=== PATIENT | male | born 1990 | race Caucasian/White ===

== ENCOUNTER → 2018-09-11 | Outpatient (CLI) | payer OTHER ==
[2018-09-11 11:23] LABS: BASO # 0.1 10^3/uL (0.0-0.2); BASO % 0.8 % (0.0-1.0); EOS # 0.3 10^3/uL (0.0-0.50); EOS % 3.4 % (0.0-3.0); HEMATOCRIT 42.4 % (42.0-52.0); HEMOGLOBIN 14.7 g/dl (13.5-17.5); LYMPH # 1.8 10^3/uL (1.5-6.5); LYMPH % 24.6 % (24.0-44.0); MEAN CORPUSCULAR HEMOGLOBIN 31.6 pg (27.0-33.0); MEAN CORPUSCULAR HGB CONC 34.7 g/dl (32.0-36.5); MEAN CORPUSCULAR VOLUME 91.2 fl (80.0-96.0); MONO # 0.5 10^3/uL (0.0-0.8); MONO % 6.8 % (0.0-5.0); NEUTROPHILS # 4.7 10^3/uL (1.8-7.7); NEUTROPHILS % 64.1 % (36.0-66.0); PLATELET COUNT, AUTOMATED 251 10^3/uL (150-450); RED BLOOD COUNT 4.65 10^6/uL (4.30-6.10); WHITE BLOOD COUNT 7.4 10^3/uL (4.0-10.0)
[2018-09-11 11:47] LABS: PERCENT SATURATION 46.4 % (19.7-50.0)
[2018-09-11 12:01] LABS: FOLATE 16.4 NG/ML
[2018-09-12 16:39] LABS: TISSUE TRANSGLUTAMINASE IgA <2 U/mL (0-3); UNITSIGA FOR GLIADIN IGA 5 units (0-19); UNITSIGG FOR GLIADIN IGG 5 units (0-19)
== END ==
LOC: M LAB 10:51
PROVIDERS: ATTEND Internal Medicine Gastroenterology
DX: R19.7 Diarrhea, unspecified (principal)

== ENCOUNTER → 2018-09-13 | Outpatient (CLI) | payer OTHER | LOC: M LAB 08:45 | PROVIDERS: ATTEND Internal Medicine Gastroenterology | DX: R19.7 Diarrhea, unspecified (principal) ==

== ENCOUNTER 2018-09-18 09:54 | Day surgery (SDC) | payer OTHER ==
[~2018-09-18] VITALS: Ht 180.3 cm; Wt 70.3 kg
[~2018-09-18 09:54] MED LIST: NS 1,000 ML IV ONE; PROPOFOL 500 MG/50 ML VIAL As Ordered ONE
[2018-09-18] MEDS ORDERED: LIDOCAINE 2% INJ 100 MG/5 ML SDV (FOR ANES.) As Ordered ONE (10:17)
--- NOTE | 2018-09-18 11:28 | ROOR ---
Patient Name: Sudarshan Nielsen Procedure Date: 09/18/2018 10:35 AM Date of : 1990 Age: 27 Room: [facility] Gender: Male Note Status: Finalized Procedure: Upper GI endoscopy Indications: Persistent vomiting Providers: Maury Nemwan MD Referring MD: JASMYN GAR MD Requesting Provider: Medicines: Monitored Anesthesia Care Complications: No immediate complications. Procedure: Pre-Anesthesia Assessment: - Prior to the procedure, a History and Physical was performed, and patient medications and allergies were reviewed. The patient is competent. The risks and benefits of the procedure and the sedation options and risks were discussed with the patient. All questions were answered and informed consent was obtained. Patient identification and proposed procedure were verified by the physician, the nurse and the anesthesiologist in the procedure room. Mental Status Examination: alert and oriented. Airway Examination: normal oropharyngeal airway and neck mobility. Respiratory Examination: clear to auscultation. CV Examination: normal. Prophylactic Antibiotics: The patient does not require prophylactic antibiotics. Prior Anticoagulants: The patient has taken no previous anticoagulant or antiplatelet agents. ASA Grade Assessment: II - A patient with mild systemic disease. After reviewing the risks and benefits, the patient was deemed in satisfactory condition to undergo the procedure. The anesthesia plan was to use monitored anesthesia care (MAC). Immediately prior to administration of medications, the patient was re-assessed for adequacy to receive sedatives. The heart rate, respiratory rate, oxygen saturations, blood pressure, adequacy of pulmonary ventilation, and response to care were monitored throughout the procedure. The physical status of the patient was re-assessed after the procedure. The Endoscope was introduced through the mouth, and advanced to the second part of duodenum. The upper GI endoscopy was accomplished without difficulty. The patient tolerated the procedure well. Findings: LA Grade A (one or more mucosal breaks less than 5 mm, not extending between tops of 2 mucosal folds) esophagitis with no bleeding was found in the distal esophagus. Biopsies were taken with a cold forceps for histology. Verification of patient identification for the specimen was done by the physician and nurse using the patient's name, date and medical record number. Estimated blood loss was minimal. Patchy moderate inflammation characterized by erythema and granularity was found in the gastric body and in the gastric antrum. Biopsies were taken with a cold forceps for Helicobacter pylori testing. The duodenal bulb and second portion of the duodenum were normal. Biopsies for histology were taken with a cold forceps for evaluation of celiac disease. Impression: - LA Grade A reflux esophagitis. Rule out Galaviz's esophagus. Biopsied. - Gastritis. Biopsied. - Normal duodenal bulb and second portion of the duodenum. Biopsied. Recommendation: - Patient has a contact number available for emergencies. The signs and symptoms of potential delayed complications were discussed with the patient. Return to normal activities tomorrow. Written discharge instructions were provided to the patient. - Resume previous diet. - Follow an antireflux regimen. - Await pathology results. - Based on the biopsy results you will receive a phone call from GI clinic in 2-3 weeks to review the pathology results AND/OR your results will be faxed to your Primary care physician. - Return to primary care physician. Maury Newman MD Maury Newman MD 09/18/2018 11:27:43 AM This report has been signed electronically. Number of Addenda: 0 Note Initiated On: 09/18/2018 10:35 AM Estimated Blood Loss: Estimated blood loss was minimal.
--- NOTE | 2018-09-18 11:42 | ROOR ---
Patient Name: Sudarshan Nielsen Procedure Date: 09/18/2018 10:36 AM Date of : 1990 Age: 27 Room: [facility] Gender: Male Note Status: Finalized Procedure: Colonoscopy Indications: Chronic diarrhea Providers: Maury Newman MD Referring MD: JASMYN GAR MD Requesting Provider: Medicines: Monitored Anesthesia Care Complications: No immediate complications. Procedure: Pre-Anesthesia Assessment: - Prior to the procedure, a History and Physical was performed, and patient medications and allergies were reviewed. The patient is competent. The risks and benefits of the procedure and the sedation options and risks were discussed with the patient. All questions were answered and informed consent was obtained. Patient identification and proposed procedure were verified by the physician, the nurse and the anesthesiologist in the procedure room. Mental Status Examination: alert and oriented. Airway Examination: normal oropharyngeal airway and neck mobility. Respiratory Examination: clear to auscultation. CV Examination: normal. Prophylactic Antibiotics: The patient does not require prophylactic antibiotics. Prior Anticoagulants: The patient has taken no previous anticoagulant or antiplatelet agents. ASA Grade Assessment: II - A patient with mild systemic disease. After reviewing the risks and benefits, the patient was deemed in satisfactory condition to undergo the procedure. The anesthesia plan was to use monitored anesthesia care (MAC). Immediately prior to administration of medications, the patient was re-assessed for adequacy to receive sedatives. The heart rate, respiratory rate, oxygen saturations, blood pressure, adequacy of pulmonary ventilation, and response to care were monitored throughout the procedure. The physical status of the patient was re-assessed after the procedure. The Colonoscope was introduced through the anus and advanced to the terminal ileum, with identification of the appendiceal orifice and IC valve. The colonoscopy was performed without difficulty. The patient tolerated the procedure well. The quality of the bowel preparation was good. The terminal ileum, ileocecal valve, appendiceal orifice, and rectum were photographed. Scope insertion time was 3 minutes. Scope withdrawal time was 9 minutes. The total duration of the procedure was 12 minutes. Findings: The perianal and digital rectal examinations were normal. Pertinent negatives include normal sphincter tone. The terminal ileum appeared normal. A 10 mm polyp was found in the ascending colon. The polyp was sessile. The polyp was removed with a cold snare. Resection and retrieval were complete. To close a defect after polypectomy, two hemostatic clips were successfully placed. There was no bleeding at the end of the procedure. Verification of patient identification for the specimen was done by the physician and nurse using the patient's name, date and medical record number. Estimated blood loss was minimal. Normal mucosa was found in the entire colon. Biopsies for histology were taken with a cold forceps from the right colon, transverse colon and rectosigmoid colon for evaluation of microscopic colitis. Non-bleeding external and internal hemorrhoids were found during retroflexion. The hemorrhoids were small. Impression: - The examined portion of the ileum was normal. - One 10 mm polyp in the ascending colon, removed with a cold snare. Resected and retrieved. Clips were placed. - Normal mucosa in the entire examined colon. Biopsied. - Non-bleeding external and internal hemorrhoids. Recommendation: - Patient has a contact number available for emergencies. The signs and symptoms of potential delayed complications were discussed with the patient. Return to normal activities tomorrow. Written discharge instructions were provided to the patient. - Resume previous diet. - Continue present medications. - Await pathology results. - Repeat colonoscopy in 3 - 5 years for surveillance based on pathology results. - Based on the biopsy results you will receive a phone call from GI clinic in 2-3 weeks to review the pathology results AND/OR your results will be faxed to your Primary care physician. - Return to primary care physician. Maury Newman MD Maury Newman MD 09/18/2018 11:42:28 AM This report has been signed electronically. Number of Addenda: 0 Note Initiated On: 09/18/2018 10:36 AM Estimated Blood Loss: Estimated blood loss was minimal.
[2018-09-18 11:53] VITALS: BP 113/75
== END 2018-09-18 11:55 | disposition home or self-care (01) ==
LOC: M OPP 09:54
PROVIDERS: ATTEND Internal Medicine Gastroenterology
DX: K64.8 Other hemorrhoids (principal); D12.2 Benign neoplasm of ascending colon; K52.9 Noninfective gastroenteritis and colitis, unspecified; K21.0 Gastro-esophageal reflux disease with esophagitis; K29.70 Gastritis, unspecified, without bleeding; R11.10 Vomiting, unspecified

== ENCOUNTER 2018-09-26 18:07 | Emergency (ER) | payer OTHER ==
[~2018-09-26] VITALS: Ht 180.3 cm; Wt 75.5 kg
[2018-09-26] MEDS ORDERED: TETRACAINE 0.5% OPHTH SOLN 4ML OU ONE (19:00)
[2018-09-26] MEDS ORDERED: FLUORESCEIN OPHTH 1 MG STRIP OU ONE (19:00)
[2018-09-26 21:43] VITALS: BP 115/62
== END 2018-09-26 21:45 | disposition home or self-care (01) ==
LOC: M ED 18:07
DX: H10.89 Other conjunctivitis (principal); Z77.098 Contact with and (suspected) exposure to other hazardous, chiefly nonmedicinal, chemicals; Z87.891 Personal history of nicotine dependence

== ENCOUNTER 2019-06-23 12:37 | Emergency (ER) | payer OTHER ==
[~2019-06-23] VITALS: Ht 180.3 cm; Wt 72.7 kg
[2019-06-23 12:38] VITALS: BP 132/62
[2019-06-23] MEDS ORDERED: IBUP-1022 PO (13:37)
--- NOTE | 2019-06-23 14:16 | REP ---
RIGHT ANKLE COMPLETE, 06/23/2019. CLINICAL HISTORY: Trauma, fell down stairs. FINDINGS: Four views are provided. The mortise joint is symmetric and preserved. There is no talar dome osteochondral defect and no fracture or avulsion of the distal tibia or fibula. Small Achilles insertion spur on the posterior calcaneus without plantar spur. Subtalar joints intact. Talus and navicula without fracture or focal lesion and showing normal articulations. Calcaneocuboid joint also normal. Visualized tarsal bones and proximal metatarsals intact. IMPRESSION: 1. No visible fracture, avulsion, disruption of the mortise joint, or other acute finding. 2. There is a tiny Achilles insertional spur evident. Electronically Signed by Johnie Woods MD 06/23/2019 07:58 P
--- NOTE | 2019-06-23 14:17 | REP ---
RIGHT FOOT COMPLETE: 06/23/2019. COMPARISON: Right ankle 06/23/2019. CLINICAL HISTORY: Trauma, fell down stairs last night. FINDINGS: Small Achilles insertional spur on the posterior calcaneus. Talus and calcaneus without fracture or focal lesion. Subtalar joints intact. Distal tibia and fibula are grossly unremarkable. Minor soft tissue swelling dorsolateral aspect of the tarsal bones. The metatarsals and tarsal show normal articulations and no fracture or focal lesion. The MTP and IP joints are intact. Phalanges without fractures. IMPRESSION: 1. Minor soft tissue swelling dorsolateral aspect of the midfoot and minimally at the ankle without fracture, avulsion, subluxation, or other acute finding. Electronically Signed by Johnie Woods MD 06/23/2019 07:58 P
== END 2019-06-23 13:56 | disposition home or self-care (01) ==
LOC: M ED 12:37
DX: S96.911A Strain of unspecified muscle and tendon at ankle and foot level, right foot, initial encounter (principal); W10.8XXA Fall (on) (from) other stairs and steps, initial encounter; Y92.018 Other place in single-family (private) house as the place of occurrence of the external cause; M77.31 Calcaneal spur, right foot; F17.210 Nicotine dependence, cigarettes, uncomplicated

== ENCOUNTER → 2019-11-13 | Outpatient (CLI) | payer OTHER ==
[~2019-11-13] MED LIST changes: +E-Z-GAS II EFFERVESCENT PACKET (SODIUM BICARB./CITRIC ACID/SIMETHICONE) As Ordered ONE; +E-Z-HD 98% w/w 340GM SUSP BTL As Ordered ONE; +E-Z-PAQUE 96% w/w SUSP 176GM BTL As Ordered ONE; +IBUP-1022 PO; -NS 1,000 ML IV ONE; -PROPOFOL 500 MG/50 ML VIAL As Ordered ONE
== END ==
LOC: M RAD 08:31
PROVIDERS: ATTEND Internal Medicine Gastroenterology
DX: R10.33 Periumbilical pain (principal)

== ENCOUNTER → 2019-12-04 | Outpatient (CLI) | payer OTHER ==
--- NOTE | 2019-12-04 17:00 | REP ---
UPPER GI AIR CONTRAST AND SMALL BOWEL FOLLOW THROUGH The procedure was performed under the direct supervision of Dr. Disla. The images were reviewed with Dr. Disla The [employer] unified communications engineer film shows no organomegaly or pathological masses. The intestinal gas pattern is non-specific. Liquid barium and gas producing crystals were given in the erect position as well as liquid barium in the prone oblique position in order to perform a double contrast upper GI examination. Additionally liquid barium was given at the end of the examination in order to perform a small bowel follow through. The oral and pharyngeal stages of deglutition are unremarkable. Esophageal transport is prompt and efficient and there is no esophagitis, stricture, mucosal ring or hiatal hernia. There is gastroesophageal reflux demonstrated to below the level of the rigo. The stomach arteaga are normally outlined . The rugal folds are smooth and regular. There is no gastritis neoplasm or ulcer disease. The duodenal arteaga are normally outlined . The mucosal folds are smooth and regular. There is no duodenitis pancreatitis peptic ulcer disease or neoplasm. The visualized portion of the proximal small bowel appears normal in course and caliber. The barium column was followed through the small bowel to the level of the terminal ileum. Small bowel transit time is approximately 15 minutes . During fluoroscopy gentle palpation shows all loops are freely movable and pliable. There are no fixed or angulated loops. The small bowel mucosal pattern is normal in course and caliber. There is no transition to suggest a partial small-bowel obstruction. Spot filming of the terminal ileum shows it to be unremarkable. Impression: There is gastroesophageal reflux demonstrated to below the level of the rigo. Otherwise, unremarkable double contrast upper GI and small bowel follow through examination. 1.8 minutes of fluoro time was utilized for this procedure. Electronically Signed by MADAN Hancock 12/04/2019 04:42 P Electronically Signed by Lj Disla MD 12/04/2019 04:50 P
== END ==
LOC: M RAD 09:54
PROVIDERS: ATTEND Internal Medicine Gastroenterology
DX: R10.33 Periumbilical pain (principal)

== ENCOUNTER → 2020-09-23 | Outpatient (CLI) | payer OTHER ==
[~2020-09-23] MED LIST changes: -E-Z-GAS II EFFERVESCENT PACKET (SODIUM BICARB./CITRIC ACID/SIMETHICONE) As Ordered ONE; -E-Z-HD 98% w/w 340GM SUSP BTL As Ordered ONE; -E-Z-PAQUE 96% w/w SUSP 176GM BTL As Ordered ONE
--- NOTE | 2020-09-23 09:47 | REP ---
INDICATION: SPINAL STENOSIS, R/O DISC PROTRUSION C5-6 PROGRESS. COMPARISON: None. TECHNIQUE: Sagittal and axial T1 and T2-weighted scans are acquired in the usual fashion with and without fat saturation. Sequences include spin echo, turbo spin-echo, and STIR imaging sequences. FINDINGS: Cervical vertebral body heights are preserved. There is straightening and slight reversal of the normal cervical lordosis. No fracture or collapse is seen. There are degenerative disc changes at C5-6 with mild reactive marrow changes on either side of the 5 6 disc. Otherwise, cortical and medullary bone signal intensity is normal in the cervical spine. The cervical cord is normal in caliber and signal intensity on T1 and T2 weighted scans. Craniocervical junction is unremarkable. Axial and sagittal images taken at the C5-6 a disc level demonstrate a broad-based right posterior disc protrusion which flattens the ventral margin of the cord and displaces it dorsally somewhat. There is mild resultant central canal narrowing, the midline AP dimension of the thecal sac at this level is 7.5 mm. There is bilateral uncovertebral spurring producing mild foraminal encroachment. This is fairly symmetric. At the C6-7 level, there is a left foraminal disc protrusion with associated uncovertebral spurring. This produces left-sided neural foraminal narrowing. There is some degenerative disc endplate changes on either side of the C6-7 disc level along the left lateral aspect of the disc. The right neural foramen is patent. No abnormality is noted at the C6-7 or the more proximal cervical spine disc levels. IMPRESSION: There are degenerative disc changes at C5-6 and C6-7. There is a left foraminal disc protrusion at C6-7 and a right posterior broad-based disc protrusion at C5-6. This produces mild central canal stenosis at C5-6 in addition to mild bilateral foraminal encroachment. There is more advanced left-sided foraminal encroachment at C6-7. <Electronically signed by Aubrey Hidalgo > 09/23/20 [id number]
== END ==
LOC: M RAD 07:05
PROVIDERS: ATTEND Orthopaedic Surgery
DX: M48.02 Spinal stenosis, cervical region (principal); M50.322 Other cervical disc degeneration at C5-C6 level; M50.323 Other cervical disc degeneration at C6-C7 level